=== PATIENT | female | born 1990 | race Caucasian/White ===

== ENCOUNTER 2018-05-13 16:00 | Outpatient (REF) | payer OTHER, SELFPAY ==
[2018-05-13 21:21] LABS: TSH (W/Ref FT4) 1.84 uIU/mL (0.358-3.74)
== END 2018-05-13 16:20 ==
LOC: NCHCN 16:00
PROVIDERS: PCP Internal Medicine; Visit Provider Family Medicine
DX: R53.83 Other fatigue (principal)
CPT/HCPCS: 84443

== ENCOUNTER 2021-12-12 11:32 | Outpatient (REF) | payer OTHER, SELFPAY ==
[2021-12-12 14:53] LABS: Abs Immature Grans 0.01 10^3/uL (0.0-0.06); Absolute Basophil Count 0.03 10^3/uL (0.0-0.2); Absolute Eosinophil Count 0.04 10^3/uL (0.0-0.7); Absolute Lymphocyte Count 2.18 10^3/uL (1.2-3.4); Absolute Monocyte Count 0.34 10^3/uL (0.1-0.8); Absolute Neutrophil Count 3.41 10^3/uL (1.2-6.7); Basophils % 0.5; Eosinophils % 0.7; HCT 38.4 % (36.0-46.0); HGB 13.1 g/dL (11.2-15.7); Immature Grans % 0.2; Lymphocytes % 36.3; MCH 31.8 pg (27.0-33.0); MCHC 34.1 % (32.0-36.0); MCV 93 fL (80-95); MPV 10.7 fL (8.0-11.0); Monocytes % 5.7; Neutrophils % 56.6; Platelet Count 255 10^3/uL (130-400); RBC 4.12 10^6/uL (3.93-5.22); RDW 11.7 % (11.7-14.6); RDW-SD 39.7 fL; WBC 6.01 10^3/uL (4.4-10.8)
[2021-12-12 16:08] LABS: ALT 35 U/L (14-59); AST 24 U/L (15-37); Albumin 4.1 g/dL (3.4-5.0); Alkaline Phosphatase 40 U/L (46-116); Anion Gap 7.1 mmol/L (3-11); BUN 11 mg/dL (7-18); Bilirubin, Total 0.5 mg/dL (0.2-1.0); CO2 26.9 mmol/L (21.0-32.0); CREATININE 0.6 mg/dL (0.55-1.02); Calcium 8.8 mg/dL (8.5-10.1); Calculated LDL 113 mg/dL (<100); Chloride 103 mmol/L (98-107); Cholesterol 180 mg/dL (<200); Estimated GFR 122.23 (mL/min/1.73m2); Glucose 79 mg/dL (74-106); HDL Cholesterol 58 mg/dL (40-60); Potassium 4.1 mmol/L (3.5-5.1); Sodium 137 mmol/L (136-145); TSH (W/Ref FT4) 1.07 uIU/mL (0.36-3.74); Total Protein 7.9 g/dL (6.4-8.2); Triglyceride 45 mg/dL (<150); Vitamin B12 590 pg/mL (193-986)
[2021-12-12 16:22] LABS: Folate > 20.0 ng/mL (8.6-20.0)
== END 2021-12-12 11:33 | disposition home or self-care (01) ==
LOC: NCHCN 11:32
PROVIDERS: PCP Internal Medicine; Visit Provider Family Medicine
DX: D64.9 Anemia, unspecified (principal); L71.0 Perioral dermatitis; Z00.00 Encounter for general adult medical examination without abnormal findings; Z72.4 Inappropriate diet and eating habits
CPT/HCPCS: 80053; 80061; 82306; 82607; 82746; 84443; 85025

== ENCOUNTER 2022-10-13 09:27 | Outpatient (REF) | payer OTHER, SELFPAY ==
--- NOTE | 2022-10-13 08:45 | PAPFT_PTH ---
PATIENT: Raven Orellana LOC: [facility]#:[id number] AGE/SX: 32/F ROOM: RE10/13/[address]: Paulette Hernandez : 1990 BED: DIS: 10/13/2022 SPEC #: [id number] RECD: 10/13/22 17:34 STATUS: SUZANNEHung REQ #: [id number] BENJAMÍN: 10/13/22 08:[address]: Paulette Hernandez DEPT: [facility] Cytology RECD BY: Jewels Morillo ENTERED: 10/13/22 17:35 SP TYPE: PAPFT OTHR DR: Ryan Peraza Tissues: 1 - CX/ENDOCX FOR PAP SMEARS Procedures: PAP THIN PREP/[facility] Screening HPV DNA PROBE Comments: [id number]
== END 2022-10-13 09:28 | disposition home or self-care (01) ==
LOC: NCHCN 09:27
PROVIDERS: PCP Internal Medicine; Visit Provider Family Medicine
DX: Z12.4 Encounter for screening for malignant neoplasm of cervix (principal); Z11.51 Encounter for screening for human papillomavirus (HPV)
CPT/HCPCS: 88142; 87624

== ENCOUNTER 2024-03-21 16:47 | Outpatient (REF) | payer OTHER, SELFPAY ==
--- NOTE | 2024-03-21 09:45 | PAPFT_PTH ---
PATIENT: Raven Orellana LOC: [facility] U#:[id number] AGE/SX: 34/F ROOM: RE03/21/[address]: Paulette Hernandez : 1990 BED: DIS: 03/21/2024 SPEC #: [id number] RECD: 03/21/24 17:56 STATUS: DAVID REJan #: [id number] BENJAMÍN: 03/21/24 09:[address]: Paulette Hernandez DEPT: [facility] Cytology RECD BY: Jewels Morillo ENTERED: 03/21/24 17:57 SP TYPE: PAPFT OTHR DR: Ryan Peraza Tissues: 1 - CX/ENDOCX FOR PAP SMEARS Procedures: PAP THIN PREP/[facility] Screening HPV DNA PROBE Comments: [id number] (HPV 16 & 18/45)
== END 2024-03-21 16:48 | disposition home or self-care (01) ==
LOC: NCHCN 16:47
PROVIDERS: PCP Internal Medicine; Visit Provider Family Medicine
DX: Z11.51 Encounter for screening for human papillomavirus (HPV) (principal); Z01.419 Encounter for gynecological examination (general) (routine) without abnormal findings
CPT/HCPCS: 88142; 87624